=== PATIENT | male | born 1980 | race Caucasian/White ===

== ENCOUNTER 2020-01-27 08:10 | Emergency (ER) | payer MEDICAID ==
[2020-01-27] MEDS ORDERED: Sodium Chloride 0.9% 2.5 ML Syringe FLUSH PRN (08:41)
[2020-01-27] MEDS ORDERED: Sodium Chloride 0.9% 1,000 ML IV ONE (08:41)
[2020-01-27] MEDS ORDERED: Aspirin 81 MG Tab.Chew PO ONE (08:41)
[2020-01-27] MEDS ORDERED: Sodium Chloride 0.9% 10 ML Syringe FLUSH PRN (08:41)
--- NOTE | 2020-01-27 08:46 | EDM.PDOC ---
ED HPI GENERAL MEDICAL PROBLEM - General Chief Complaint: Respiratory Problem Stated Complaint: SHORTNESS BREATH/TIGHT CHEST Time Seen by Provider: 01/27/20 08:41 Source of Information: Reports: Patient History Limitations: Reports: No Limitations - History of Present Illness INITIAL COMMENTS - FREE TEXT/NARRATIVE: History of present illness: [Patient is 40-year-old male who presents to the ER with concern for COVID-19 exposure. His 19-year-old son was diagnosed positive yesterday. He has been staying with him at his house. Patient states that he woke up this morning fee ling some shortness of breath, chest tightness, nonproductive cough. He tells me that he has a heart condition, that the last time he got worked up was when he was in his late teens, it involved syncopal episodes. He states that his heart will occasionally stop causing him to pass out after which his heart will beat fast and hard and usually he has to lie down and breathe a certain way for the symptoms to pass. He denies having had an episode like that happen this morning, he is just concerned based on his other symptoms that it could be a contributing factor. He has never worn a Holter monitor or had any thorough investigation involving the symptoms, he states that he just deals with it on his own at home. He has a hard time quantifying how often this actually happens. Review of systems: As per history of present illness and below otherwise all systems reviewed and negative. Past medical history: As per history of present illness and as reviewed below otherwise noncontributor y. Surgical history: As per history of present illness and as reviewed below otherwise noncontributory. Social history: No reported history of drug or alcohol abuse. Family history: As per history of present illness and as reviewed below otherwise noncontributory. Physical exam: General: Awake, alert, no acute distress, A&O X3. HEENT: Atraumatic, normocephalic, pupils reactive, negative for conjunctival pallor or scleral icterus, mucous membranes moist, throat clear, neck supple, nontender, trachea midline. Lungs: Clear to auscultation, breath sounds equal bilaterally, chest nontender. Heart: RRR, normal S1S2, no JVD. Abdomen: Soft, nondistended, nontender. Negative for masses or hepatosplenomegaly. Negative for costovertebral tenderness. Pelvis: Stable nontender. Genitourinary: Deferred. Rectal: Deferred. Extremities: Atraumatic, no edema, Neurovascular unremarkable. Neuro: Motor and sensory grossly intact throughout. Exam nonfocal. Diagnostics: [] Therapeutics: [] Impression: [] Plan: [] Definitive disposition and diagnosis as appropriate pending reevaluation and review of above. headache Pain Score (Numeric/FACES): 9 - Related Data Allergies Allergy/AdvReac Type Severity Reaction Status Date / Time No Known Allergies Allergy Verified 01/27/20 08:41 Home Meds: Home Meds . [No Known Home Meds] 01/27/20 [History] ED ROS GENERAL - Review of Systems Review Of Systems: Comprehensive ROS is negative, except as noted in HPI. ED EXAM, GENERAL - Physical Exam Exam: See Below (see h an p) #1 Interpretation EKG Date: 01/27/20 Time: 09:01 Rhythm: NSR Rate (Beats/Min): 74 [place]: Normal P-Wave: Present QRS: Normal ST-T: Normal QT: Normal EKG Interpretation Comments: normal sinus Course - Vital Signs Text/Narrative:: Patient is stable vital signs, other than being Covid positive he has a reassuri ng work-up. I encouraged him to isolate at home, use [id number] cough and cold remedies to help with fever and chills and other symptomatic relief. Return precautions provided otherwise he was stable and well-appearing at discharge. Last Recorded V/S: Last Vital Signs Temp 36.3 C 01/27/20 08:29 Pulse 80 01/27/20 08:29 Resp 18 01/27/20 08:29 BP 122/85 01/27/20 08:29 Pulse Ox 96 01/27/20 08:29 - Orders/Labs/Meds Orders: Active Orders 24 hr Category Date Time Status EKG 12 Lead [EKG Documentation Completion] [RC] STAT Care 01/27/20 08:46 Active CORONAVIRUS COVID-19 PCR PHL Stat Lab 01/27/20 09:20 Received Sodium Chloride 0.9% [Saline Flush] Med 01/27/20 08:41 Active 10 ml FLUSH ASDIRECTED PRN Sodium Chloride 0.9% [Saline Flush] Med 01/27/20 08:41 Active 2.5 ml FLUSH ASDIRECTED PRN Saline Lock Insert [OM.PC] Stat Oth 01/27/20 08:41 Ordered Medication Orders Sodium Chloride (Saline Flush) 10 ml FLUSH ASDIRECTED PRN PRN Reason: Keep Vein Open Last Admin: 01/27/20 09:15 Dose: 10 ml Documented by: JOLANTA Sodium Chloride (Saline Flush) 2.5 ml FLUSH ASDIRECTED PRN PRN Reason: Keep Vein Open Last Admin: 01/27/20 09:15 Dose: 2.5 ml Documented by: JOLANTA Labs: Laboratory Tests 01/27/20 01/27/20 01/27/20 Range/Units 09:06 09:06 09:20 WBC 4.69 (4.0-11.0) K/uL RBC 4.79 (4.50-5.90) M/uL Hgb 14.3 (13.0-17.0) g/dL Hct 43.0 (38.0-50.0) % MCV 89.8 (80.0-98.0) fL MCH 29.9 (27.0-32.0) pg MCHC 33.3 (31.0-37.0) g/dL RDW Std Deviation 43.0 (28.0-62.0) fl RDW Coeff of Mervat 13 (11.0-15.0) % Plt Count 198 (150-400) K/uL MPV 11.00 (7.40-12.00) fL Neut % (Auto) 62.0 (48.0-80.0) % Lymph % (Auto) 16.8 (16.0-40.0) % [place] % (Auto) 17.3 H (0.0-15.0) % Eos % (Auto) 3.0 (0.0-7.0) % Baso % (Auto) 0.9 (0.0-1.5) % Neut # (Auto) 2.9 (1.4-5.7) K/uL Lymph # (Auto) 0.8 (0.6-2.4) K/uL [place] # (Auto) 0.8 (0.0-0.8) K/uL Eos # (Auto) 0.1 (0.0-0.7) K/uL Baso # (Auto) 0.0 (0.0-0.1) K/uL Nucleated RBC % 0.0 /100WBC Nucleated RBCs # 0 K/uL Sodium 137 (136-148) mmol/L Potassium 4.2 (3.5-5.1) mmol/L Chloride 104 (98-107) mmol/L Carbon Dioxide 24.6 (21.0-32.0) mmol/L BUN 12 (7.0-18.0) mg/dL Creatinine 1.0 (0.8-1.3) mg/dL Est Cr Clr Drug Dosing 103.42 mL/min Estimated GFR (MDRD) > 60.0 ml/min Glucose 94 (74-106) mg/dL Calcium 9.2 (8.5-10.1) mg/dL Total Bilirubin 0.4 (0.2-1.0) mg/dL AST 15 (15-37) IU/L ALT 21 (14-63) IU/L Alkaline Phosphatase 70 (46-116) U/L Troponin I < 0.050 (0.000-0.056) ng/mL Total Protein 7.4 (6.4-8.2) g/dL Albumin 4.3 (3.4-5.0) g/dL Globulin 3.1 (2.6-4.0) g/dL Albumin/Globulin Ratio 1.4 (0.9-1.6) SARS CoV-2 RNA Rapid SANDRA POSITIVE H (NEGATIVE) Meds: Medications Generic Name Dose Route Start Last Admin Trade Name Sandeepq PRN Reason Stop Dose Admin Sodium Chloride 10 ml 01/27/20 08:41 01/27/20 09:15 Saline Flush FLUSH 10 ml ASDIRECTED PRN Administration Keep Vein Open Sodium Chloride 2.5 ml 01/27/20 08:41 01/27/20 09:15 Saline Flush FLUSH 2.5 ml ASDIRECTED PRN Administration Keep Vein Open Discontinued Medications Generic Name Dose Route Start Last Admin Trade Name Freq PRN Reason Stop Dose Admin Aspirin 324 mg 01/27/20 08:41 01/27/20 09:02 Aspirin PO 01/27/20 08:42 324 mg ONETIME ONE Administration Sodium Chloride 1,000 mls @ 999 mls/hr 01/27/20 08:41 01/27/20 09:11 Normal Saline IV 01/27/20 09:41 999 mls/hr .Bolus ONE Administration Departure - Departure Time of Disposition: 09:52 Disposition: Home, Self-Care 01 Condition: Good Clinical Impression: COVID-19, Dyspnea - Discharge Information Instructions: COVID-19, COVID-19: How to Protect Yourself and Others - [facility] Referrals: PCP,None [Primary Care Provider] - Forms: ED Department Discharge Sepsis Event Note (ED) - Evaluation Sepsis Screening Result: No Definite Risk - Focused Exam Vital Signs: Vital Signs Temp Pulse Resp BP Pulse Ox 01/27/20 08:29 36.3 C 80 18 122/85 96 - My Orders Last 24 Hours: My Active Orders 01/27/20 08:41 Sodium Chloride 0.9% [Saline Flush] 10 ml FLUSH ASDIRECTED PRN Sodium Chloride 0.9% [Saline Flush] 2.5 ml FLUSH ASDIRECTED PRN Saline Lock Insert [OM.PC] Stat 01/27/20 08:46 EKG 12 Lead [EKG Documentation Completion] [RC] STAT 01/27/20 09:20 CORONAVIRUS COVID-19 PCR PHL Stat - Assessment/Plan Last 24 Hours: My Active Orders 01/27/20 08:41 Sodium Chloride 0.9% [Saline Flush] 10 ml FLUSH ASDIRECTED PRN Sodium Chloride 0.9% [Saline Flush] 2.5 ml FLUSH ASDIRECTED PRN Saline Lock Insert [OM.PC] Stat 01/27/20 08:46 EKG 12 Lead [EKG Documentation Completion] [RC] STAT 01/27/20 09:20 CORONAVIRUS COVID-19 PCR PHL Stat
--- NOTE | 2020-01-27 09:09 | CR ---
INDICATION: Dyspnea COMPARISON: None TECHNIQUE: Single-view chest radiograph FINDINGS: TUBES AND LINES: None. HEART AND MEDIASTINUM: The heart size is normal. The mediastinal contour appears normal for patient age. LUNGS AND PLEURAL SPACES: Left midlung nodule is present on 2 images and is probably a nipple shadow though follow-up evaluation is recommended at a clinically appropriate time. The lungs and pleural spaces are otherwise unremarkable. OSSEOUS STRUCTURES: Age-appropriate appearance. No acute focal finding. IMPRESSION: Left midlung nodule is present on 2 images and is probably a nipple shadow though follow-up evaluation is recommended at a clinically appropriate time. Lungs and pleural spaces are otherwise unremarkable without acute focal finding Dictated by Gordon Mohamud MD @ Jan 27 2020 9:05AM Signed by Dr. Gordon Mohamud @ Jan 27 2020 9:08AM
[2020-01-27 09:44] LABS: BLOOD UREA NITROGEN,BUN 12 mg/dL (7.0-18.0); CARBON DIOXIDE,CO2 24.6 mmol/L (21.0-32.0); CHLORIDE,CL 104 mmol/L (98-107); GLUCOSE RANDOM 94 mg/dL (74-106); POTASSIUM,K 4.2 mmol/L (3.5-5.1); SODIUM,NA 137 mmol/L (136-148)
== END 2020-01-27 10:04 | disposition home or self-care (01) ==
LOC: MW.ED 08:10
DX: U07.1 COVID-19 (principal)
CPT/HCPCS: 36415; 71045; 80053; 84484; 85025; 87635; 93005; 99285; A9270; J7030; U0002

== ENCOUNTER 2021-09-17 13:52 | Emergency (ER) | payer MEDICAID ==
[2021-09-17] MEDS ORDERED: Sodium Chloride 0.9% 10 ML Syringe FLUSH PRN (14:42)
[2021-09-17] MEDS ORDERED: Sodium Chloride 0.9% 2.5 ML Syringe FLUSH PRN (14:42)
[2021-09-17 15:07] LABS: BLOOD UREA NITROGEN,BUN 11 mg/dL (7.0-18.0); CARBON DIOXIDE,CO2 25.3 mmol/L (21.0-32.0); CHLORIDE,CL 103 mmol/L (98-107); ESTIMATED GFR 115 mL/min (>60); GLUCOSE RANDOM 96 mg/dL (74-106); POTASSIUM,K 3.8 mmol/L (3.5-5.1); SODIUM,NA 138 mmol/L (136-148)
== END 2021-09-17 17:30 | disposition home or self-care (01) ==
LOC: MW.ED 13:52
DX: R07.89 Other chest pain (principal); Z88.8 Allergy status to other drugs, medicaments and biological substances
CPT/HCPCS: 36415; 71045; 80053; 81003; 84484; 85025; 85379; 93005; 99285; J3490; 83690; 93010; 99284

== ENCOUNTER 2021-11-28 15:04 | Observation (INO) | payer MEDICAID ==
[2021-11-28] MEDS ORDERED: Metoprolol Tartrate 5 MG/5 ML SDV ONE (15:17)
[2021-11-28] MEDS ORDERED: Sodium Chloride 0.9% 1,000 ML IV ONE (15:26)
[2021-11-28] MEDS ORDERED: Sodium Chloride 0.9% 2.5 ML Syringe FLUSH PRN (15:26)
[2021-11-28] MEDS ORDERED: Sodium Chloride 0.9% 10 ML Syringe FLUSH PRN (15:26)
[2021-11-28] MEDS ORDERED: Amiodarone 150 MG/3 ML SDV IV ONE (15:30)
[2021-11-28] MEDS ORDERED: fentaNYL 50 MCG/ML SDV ONE (15:31)
[2021-11-28] MEDS ORDERED: Midazolam 1 MG/ML 2 ML SDV ONE (15:31)
[2021-11-28] MEDS ORDERED: Adenosine 6 MG/2 ML SDV IVPUSH ONE ×2 (15:38→15:39)
[2021-11-28] MEDS ORDERED: fentaNYL 50 MCG/ML SDV IVPUSH ONE (15:38)
[2021-11-28] MEDS ORDERED: Midazolam 1 MG/ML 2 ML SDV IVPUSH ONE (15:38)
[2021-11-28] MEDS ORDERED: Sodium Chloride 0.9% 1,000 ML IV STA (15:39)
[2021-11-28 15:47] LABS: BLOOD UREA NITROGEN,BUN 12 mg/dL (7.0-18.0); CARBON DIOXIDE,CO2 27.5 mmol/L (21.0-32.0); CHLORIDE,CL 101 mmol/L (98-107); GLUCOSE RANDOM 103 mg/dL (74-106); POTASSIUM,K 3.9 mmol/L (3.5-5.1); SODIUM,NA 138 mmol/L (136-148)
[2021-11-28 15:51] LABS: ESTIMATED GFR 98 mL/min (>60)
[2021-11-28] MEDS ORDERED: Albuterol/Ipratropium 3.0-0.5 MG/3 ML Neb Soln NEB PRN (18:10)
[2021-11-28] MEDS ORDERED: Acetaminophen 325 MG Tab PO PRN (18:10)
[2021-11-28] MEDS ORDERED: Ondansetron 4 MG/2 ML SDV IVPUSH PRN (18:11)
[2021-11-28] MEDS: Pantoprazole 40 MG Tab.CR PO SCH (20:52)
[2021-11-28] MEDS: Apixaban 5 MG Tab PO SCH ×2 (20:52)
[2021-11-29 06:39] LABS: CARBON DIOXIDE,CO2 26.7 mmol/L (21.0-32.0); POTASSIUM,K 4.2 mmol/L (3.5-5.1)
[2021-11-29] MEDS: Apixaban 5 MG Tab PO SCH (08:58)
[2021-11-29] MEDS: Pantoprazole 40 MG Tab.CR PO SCH (08:59)
== END 2021-11-29 11:06 | disposition home or self-care (01) ==
LOC: MW.ED 15:04 → MW.ICU 17:43
PROVIDERS: ADMIT Internal Medicine; ATTEND Internal Medicine
DX: I47.1 Supraventricular tachycardia (principal); I48.91 Unspecified atrial fibrillation; I45.6 Pre-excitation syndrome; F17.210 Nicotine dependence, cigarettes, uncomplicated; Z79.899 Other long term (current) drug therapy; Z20.822 Contact with and (suspected) exposure to COVID-19
CPT/HCPCS: 36415; 71045; 80053; 83735; 84100; 84443; 85025; 87635; 92950; 93005; 96365; 96366; 96375; 99285; A9270; J0153; J0282; J2250; J3010; J3490; J7030; 99217; 99218; U0002